=== PATIENT | male | born 2000 ===

== ENCOUNTER 2024-04-24 00:21 | Emergency (ER) | payer OTHER ==
[~2024-04-24] VITALS: Ht 167.6 cm; Wt 70.5 kg
[2024-04-24] MEDS ORDERED: IBUP-1492 PO (00:50)
[2024-04-24] MEDS ORDERED: SULF-261 PO (00:50)
[2024-04-24 02:00] VITALS: BP 119/70; PULSE 66; RESP 16; TEMP 97.3
[2024-04-24] MEDS: BACITRACIN 0.9 GM PACKET OINTMENT TP ONE (02:14)
== END 2024-04-24 02:00 | disposition home or self-care (01) ==
LOC: EMS 00:21
DX: S01.03XA Puncture wound without foreign body of scalp, initial encounter (principal); W22.8XXA Striking against or struck by other objects, initial encounter; Y93.02 Activity, running; Y92.89 Other specified places as the place of occurrence of the external cause; Y99.8 Other external cause status
CPT/HCPCS: 99283